=== PATIENT | male | born 1940 | race Caucasian/White ===

== ENCOUNTER 2023-10-05 11:41 | Outpatient (CLI) | payer MEDICARE, OTHER ==
[2023-10-05 13:06] LABS: APPEARANCE,URINE CLEAR (CLEAR); BILIRUBIN,URINE NEGATIVE (NEGATIVE); BLOOD, URINE NEGATIVE Ery/uL (NEGATIVE); COLOR,URINE YELLOW (YELLOW); KETONES,URINE NEGATIVE (NEGATIVE); LEUKOCYTE ESTERASE ,URINE NEGATIVE (NEGATIVE); NITRITE, URINE NEGATIVE (NEGATIVE); PROTEIN,URINE NEGATIVE (NEGATIVE); UGLUCOSE NEGATIVE (NEGATIVE); UROBILINOGEN,URINE 0.2 EU/dL (0.2)
[2023-10-05 13:14] LABS: INR 1.07 (0.91-1.10); PARTIAL THROMBOPLASTIN TIME 27.9 SEC (24.3-34.3); PROTHROMBIN TIME 11.3 SECS (9.2-11.1)
[2023-10-05 13:16] LABS: BASOPHILS # (AUTO) 0.1 K/uL (0.0-0.2); EOSINOPHILS # (AUTO) 0.1 K/uL (0.0-0.7); HEMATOCRIT 45 % (39-51); HEMOGLOBIN 14.8 g/dL (13.5-17.5); LYMPHOCYTES # (AUTO) 1.4 K/uL (0.8-4.8); LYMPHOCYTES % (AUTO) 21.1 % (20.0-44.0); MEAN CORPUSCULAR HEMOGLOBIN 29 PG (26.0-33.0); MEAN CORPUSCULAR HGB CONC 33 g/dl (31.0-36.0); MEAN CORPUSCULAR VOLUME 88 fL (80-96); MONOCYTES # (AUTO) 0.5 K/uL (0.1-1.30); NEUTROPHILS # (AUTO) 4.5 K/uL (1.8-8.9); NEUTROPHILS % (AUTO) 68.9 % (43.0-81.0); PLATELET COUNT (AUTO) 271 K/uL (150-450); RED CELL DISTRIBUTION WIDTH 14.9 % (11.5-15.0); WHITE BLOOD COUNT (AUTO) 6.5 K/uL (4.3-11.0)
[2023-10-05 13:30] LABS: CALCIUM, SERUM 9.3 mg/dL (8.5-10.1); CARBON DIOXIDE 28 mmol/L (21-32); CHLORIDE 104 mmol/L (98-107); CREATININE 1.6 mg/dL (0.6-1.3); GLUCOSE 99 mg/dL (74-106); POTASSIUM 4.2 mmol/L (3.5-5.1); SODIUM SERUM 140 mmol/L (136-145); UREA NITROGEN, BLOOD 21 mg/dL (7-18)
== END 2023-10-05 23:59 | disposition home or self-care (01) ==
LOC: RAD 11:41
PROVIDERS: ATTEND Internal Medicine Pulmonary Disease
DX: Z01.818 Encounter for other preprocedural examination (principal); R94.31 Abnormal electrocardiogram [ECG] [EKG]; I25.2 Old myocardial infarction
CPT/HCPCS: 36415; 71045-TC; 80048-TC; 85025-TC; 85730-TC

== ENCOUNTER 2024-02-16 13:49 | Inpatient (IN) | payer MEDICARE, OTHER ==
[~2024-02-16] VITALS: Ht 167.6 cm; Wt 85.7 kg
[2024-02-16] MEDS: IV D5/0.45 NACL 1,000 ML IV PRN (18:23)
[2024-02-16] MEDS ORDERED: ONDANSETRON HCL/PF 4 MG/2 ML VIAL IVP PRN (18:30)
[2024-02-16] MEDS ORDERED: Z GUARD REMEDY 4 OZ OINT TP PRN (18:30)
[2024-02-16] MEDS ORDERED: ACETAMINOPHEN 325 MG TABLET PO PRN (18:30)
[2024-02-16] MEDS: LEVOFLOXACIN 500 MG /D5W 100ML 500 MG in PREMIX 1 EA IV SCH (18:37)
[2024-02-16] MEDS: METRONIDAZOLE 500MG/ NS 100ML 500 MG in PREMIX 1 EA IV SCH (18:38)
[2024-02-16 20:00] VITALS: BP_SYST 134; BP_SYST 135; BP_DIAS 74; TEMP 97.7; TEMP 97.9; O2SAT 94; O2SAT 95
[2024-02-17] VITALS: BP 120/68; TEMP 97.5; O2SAT 94
[2024-02-17 04:00] VITALS: BP 127/70; TEMP 97.5; O2SAT 95
[2024-02-17 07:39] LABS: BASOPHILS % (AUTO) 0.3 % (0.0-2.0); EOSINOPHILS # (AUTO) 0.1 K/uL (0.0-0.7); EOSINOPHILS % (AUTO) 1.2 % (0.0-6.0); HEMATOCRIT 37 % (39-51); HEMOGLOBIN 12.2 g/dL (13.5-17.5); LYMPHOCYTES # (AUTO) 1.6 K/uL (0.8-4.8); LYMPHOCYTES % (AUTO) 14.4 % (20.0-44.0); MEAN CORPUSCULAR HEMOGLOBIN 29 PG (26.0-33.0); MEAN CORPUSCULAR HGB CONC 33 g/dl (31.0-36.0); MEAN CORPUSCULAR VOLUME 88 fL (80-96); MONOCYTES # (AUTO) 1.1 K/uL (0.1-1.30); NEUTROPHILS # (AUTO) 8.4 K/uL (1.8-8.9); NEUTROPHILS % (AUTO) 74.1 % (43.0-81.0); PLATELET COUNT (AUTO) 277 K/uL (150-450); RED BLOOD CELL COUNT(AUTO) 4.14 MIL/uL (4.5-6.0); RED CELL DISTRIBUTION WIDTH 14.9 % (11.5-15.0); WHITE BLOOD COUNT (AUTO) 11.3 K/uL (4.3-11.0)
[2024-02-17 08:00] VITALS: BP 125/71; TEMP 99; O2SAT 93
[2024-02-17 08:44] LABS: ALANINE AMINOTRANSFERASE 11 U/L (12-78); ALBUMIN 2.5 g/dL (3.4-5.0); ALKALINE PHOSPHATASE 42 U/L (46-116); ASPARTATE AMINOTRANSFERASE 13 U/L (15-37); BILIRUBIN,TOTAL 0.6 mg/dL (0.2-1.0); CALCIUM, SERUM 7.4 mg/dL (8.5-10.1); CARBON DIOXIDE 26 mmol/L (21-32); CHLORIDE 101 mmol/L (98-107); CREATININE 1.9 mg/dL (0.6-1.3); GLUCOSE 95 mg/dL (74-106); MAGNESIUM 2.1 mg/dL (1.8-2.4); POTASSIUM 3.8 mmol/L (3.5-5.1); SODIUM SERUM 134 mmol/L (136-145); TOTAL PROTEIN, SERUM 5.7 g/dL (6.4-8.2); UREA NITROGEN, BLOOD 35 mg/dL (7-18)
[2024-02-17] MEDS: Sodium Phosphate 15 MMOL in IV NS 0.9% 245 ML IV SCH (10:46)
[2024-02-17] MEDS ORDERED: DIATR MEGLU/DIATRIZOATE SODIUM 120 ML BOTTLE (GASTROGRAPHIN) ONE (11:53)
[2024-02-17 12:00] VITALS: BP 142/70; TEMP 97.9; O2SAT 93
[2024-02-17 16:00] VITALS: BP 140/95; TEMP 97.7; O2SAT 94
[2024-02-17 21:52] VITALS: BP 149/77; TEMP 97.7; O2SAT 96
[2024-02-18 03:54] VITALS: BP 142/71; TEMP 97.9; O2SAT 92
[2024-02-18 07:00] VITALS: BP 147/80; TEMP 98.1; O2SAT 92
[2024-02-18 09:49] LABS: BASOPHILS # (AUTO) 0.1 K/uL (0.0-0.2); BASOPHILS % (AUTO) 0.5 % (0.0-2.0); EOSINOPHILS # (AUTO) 0.1 K/uL (0.0-0.7); EOSINOPHILS % (AUTO) 1.2 % (0.0-6.0); HEMATOCRIT 37 % (39-51); HEMOGLOBIN 12.7 g/dL (13.5-17.5); LYMPHOCYTES # (AUTO) 1.6 K/uL (0.8-4.8); LYMPHOCYTES % (AUTO) 16.4 % (20.0-44.0); MEAN CORPUSCULAR HEMOGLOBIN 30 PG (26.0-33.0); MEAN CORPUSCULAR HGB CONC 34 g/dl (31.0-36.0); MEAN CORPUSCULAR VOLUME 88 fL (80-96); MONOCYTES # (AUTO) 0.9 K/uL (0.1-1.30); MONOCYTES % (AUTO) 8.9 % (2.0-12.0); NEUTROPHILS # (AUTO) 7.1 K/uL (1.8-8.9); PLATELET COUNT (AUTO) 279 K/uL (150-450); RED BLOOD CELL COUNT(AUTO) 4.26 MIL/uL (4.5-6.0); RED CELL DISTRIBUTION WIDTH 14.7 % (11.5-15.0); WHITE BLOOD COUNT (AUTO) 9.8 K/uL (4.3-11.0)
[2024-02-18 09:57] LABS: CALCIUM, SERUM 8.2 mg/dL (8.5-10.1); CARBON DIOXIDE 27 mmol/L (21-32); CHLORIDE 105 mmol/L (98-107); CREATININE 1.9 mg/dL (0.6-1.3); GLUCOSE 97 mg/dL (74-106); POTASSIUM 3.4 mmol/L (3.5-5.1); SODIUM SERUM 141 mmol/L (136-145); UREA NITROGEN, BLOOD 34 mg/dL (7-18)
[2024-02-18 11:30] VITALS: BP 144/73; TEMP 98.6; O2SAT 96
[2024-02-18 16:00] VITALS: BP 154/87; TEMP 97.9; O2SAT 96
[2024-02-18] MEDS: LEVOFLOXACIN 250 MG /D5W 50 ML 250 MG in PREMIX 1 EA IV SCH (18:02)
[2024-02-18 22:07] VITALS: BP 132/77; TEMP 97.8; O2SAT 100
[2024-02-19] VITALS (7 sets, daily range): BP systolic 135–164; BP diastolic 65–89; TEMP 98–99.1; O2SAT 94–96
[2024-02-19 07:43] LABS: BASOPHILS # (AUTO) 0.1 K/uL (0.0-0.2); BASOPHILS % (AUTO) 0.6 % (0.0-2.0); EOSINOPHILS # (AUTO) 0.2 K/uL (0.0-0.7); EOSINOPHILS % (AUTO) 2.3 % (0.0-6.0); HEMATOCRIT 36 % (39-51); LYMPHOCYTES # (AUTO) 1.8 K/uL (0.8-4.8); LYMPHOCYTES % (AUTO) 20.7 % (20.0-44.0); MEAN CORPUSCULAR HEMOGLOBIN 30 PG (26.0-33.0); MEAN CORPUSCULAR HGB CONC 34 g/dl (31.0-36.0); MEAN CORPUSCULAR VOLUME 87 fL (80-96); MONOCYTES # (AUTO) 0.8 K/uL (0.1-1.30); MONOCYTES % (AUTO) 9.4 % (2.0-12.0); PLATELET COUNT (AUTO) 288 K/uL (150-450); RED BLOOD CELL COUNT(AUTO) 4.08 MIL/uL (4.5-6.0); RED CELL DISTRIBUTION WIDTH 14.3 % (11.5-15.0); WHITE BLOOD COUNT (AUTO) 8.9 K/uL (4.3-11.0)
[2024-02-19 08:05] LABS: CREATINE KINASE, TOTAL 33 U/L (39-308)
[2024-02-19 08:07] LABS: ALANINE AMINOTRANSFERASE 12 U/L (12-78); ALBUMIN 2.5 g/dL (3.4-5.0); ALKALINE PHOSPHATASE 44 U/L (46-116); ASPARTATE AMINOTRANSFERASE 12 U/L (15-37); BILIRUBIN,TOTAL 0.5 mg/dL (0.2-1.0); CARBON DIOXIDE 26 mmol/L (21-32); CHLORIDE 103 mmol/L (98-107); CREATININE 1.6 mg/dL (0.6-1.3); GLUCOSE 115 mg/dL (74-106); MAGNESIUM 1.9 mg/dL (1.8-2.4); POTASSIUM 3.1 mmol/L (3.5-5.1); SODIUM SERUM 136 mmol/L (136-145); TOTAL PROTEIN, SERUM 5.7 g/dL (6.4-8.2); UREA NITROGEN, BLOOD 26 mg/dL (7-18)
[2024-02-19 08:48] LABS: PHOSPHORUS 1.9 mg/dL (2.5-4.9)
[2024-02-19] MEDS ORDERED: POTASSIUM CHLORIDE 10 MEQ TABLET.SA PO ONE (10:00)
[2024-02-19] MEDS: POTASSIUM CL. PREMIX PERIPHER. 50 ML IV SCH (11:26)
[2024-02-19] MEDS: PANTOPRAZOLE 40 MG VIAL IV SCH (11:30)
[2024-02-19] MEDS: METRONIDAZOLE 500 MG TABLET PO SCH (13:18)
[2024-02-19] MEDS: NEUTRA PHOS 1 POWD.PACKET PO ONE (18:17)
[2024-02-19] MEDS: LEVOFLOXACIN (250MG) 250 MG TABLET PO SCH (18:17)
[2024-02-20] MEDS ORDERED: ANESTHESIA TRAY IN PYXIS 1 EA TRAY MC ONE (07:00)
[2024-02-20 08:00] VITALS: BP 133/68; TEMP 98.8; O2SAT 94
[2024-02-20 08:10] LABS: PTH, INTACT 77 pg/mL (15-65)
[2024-02-20] MEDS ORDERED: GLUCAGON,HUMAN RECOMBINANT 1 MG/VIAL VIAL ONE (08:15)
[2024-02-20 13:09] LABS: *SPE A/G RATIO 1.1 (0.7-1.7); *SPE ALBUMIN 2.8 g/dL (2.9-4.4); *SPE ALPHA-1-GLOBULIN 0.3 g/dL (0.0-0.4); *SPE ALPHA-2-GLOBULIN 0.8 g/dL (0.4-1.0); *SPE BETA GLOBULIN 0.7 g/dL (0.7-1.3); *SPE GLOBULIN, TOTAL 2.5 g/dL (2.2-3.9); *SPE M-SPIKE Not Observed g/dL (Not Observed); *SPE PROTEIN TOTAL 5.3 g/dL (6.0-8.5); *SPEGAMMA GLOBULIN 0.8 g/dL (0.4-1.8)
[2024-02-20 16:00] VITALS: BP 150/82; TEMP 98.1; O2SAT 97
[2024-02-20] MEDS ORDERED: FLUC200T PO (18:16)
[2024-02-20] MEDS ORDERED: PANT40TA2 PO (18:16)
[2024-02-20 20:00] VITALS: BP 148/79; TEMP 97.9; O2SAT 96
[2024-02-20] MEDS: TEMAZEPAM 7.5 MG CAPSULE PO ONE (21:56)
[2024-02-21 07:09] LABS: BASOPHILS # (AUTO) 0.1 K/uL (0.0-0.2); BASOPHILS % (AUTO) 0.8 % (0.0-2.0); EOSINOPHILS # (AUTO) 0.2 K/uL (0.0-0.7); EOSINOPHILS % (AUTO) 2.2 % (0.0-6.0); HEMATOCRIT 36 % (39-51); HEMOGLOBIN 12.1 g/dL (13.5-17.5); LYMPHOCYTES # (AUTO) 2.1 K/uL (0.8-4.8); LYMPHOCYTES % (AUTO) 23.4 % (20.0-44.0); MEAN CORPUSCULAR HEMOGLOBIN 30 PG (26.0-33.0); MEAN CORPUSCULAR HGB CONC 34 g/dl (31.0-36.0); MEAN CORPUSCULAR VOLUME 87 fL (80-96); MONOCYTES # (AUTO) 0.9 K/uL (0.1-1.30); MONOCYTES % (AUTO) 9.5 % (2.0-12.0); NEUTROPHILS # (AUTO) 5.8 K/uL (1.8-8.9); NEUTROPHILS % (AUTO) 64.1 % (43.0-81.0); PLATELET COUNT (AUTO) 303 K/uL (150-450); WHITE BLOOD COUNT (AUTO) 9.1 K/uL (4.3-11.0)
[2024-02-21 07:23] LABS: CALCIUM, SERUM 8.5 mg/dL (8.5-10.1); CARBON DIOXIDE 25 mmol/L (21-32); CHLORIDE 104 mmol/L (98-107); CREATININE 1.6 mg/dL (0.6-1.3); GLUCOSE 110 mg/dL (74-106); POTASSIUM 3.1 mmol/L (3.5-5.1); SODIUM SERUM 136 mmol/L (136-145); UREA NITROGEN, BLOOD 13 mg/dL (7-18)
[2024-02-21 08:00] VITALS: BP 131/59; TEMP 98.8; O2SAT 93
[2024-02-21] MEDS: PANTOPRAZOLE 40 MG/PACK PACK PO SCH (09:15)
[2024-02-21] MEDS: POTASSIUM CHLORIDE 20 MEQ POWDER PACKET NG SCH (10:14)
[2024-02-21] MEDS ORDERED: POTASSIUM CL. PREMIX PERIPHER. 50 ML IV SCH (10:30)
[2024-02-21] MEDS: POTASSIUM CHLORIDE 20 MEQ TAB.PRT.SR PO SCH (11:43)
[2024-02-21 12:00] VITALS: BP 90/68; TEMP 97.5; O2SAT 95
== END 2024-02-21 15:00 | disposition home or self-care (01) | DRG 388 ==
LOC: TELE 15:35 → MED 02-19 17:02
PROVIDERS: ADMIT Internal Medicine; ATTEND Internal Medicine
PROC: 0DB38ZX Excision of Lower Esophagus, Via Natural or Artificial Opening Endoscopic, Diagnostic (ICD-10-PCS; principal; 2024-02-21)
PROC: 0DB78ZX Excision of Stomach, Pylorus, Via Natural or Artificial Opening Endoscopic, Diagnostic (ICD-10-PCS; 2024-02-21)
DX: K56.600 Partial intestinal obstruction, unspecified as to cause (principal); N17.0 Acute kidney failure with tubular necrosis; E87.1 Hypo-osmolality and hyponatremia; B37.81 Candidal esophagitis; K25.3 Acute gastric ulcer without hemorrhage or perforation; K57.90 Diverticulosis of intestine, part unspecified, without perforation or abscess without bleeding; N40.0 Benign prostatic hyperplasia without lower urinary tract symptoms; N28.1 Cyst of kidney, acquired; N18.9 Chronic kidney disease, unspecified; N13.9 Obstructive and reflux uropathy, unspecified
CPT/HCPCS: 36415; 71045-TC; 74018; 74250-TC; 76770-TC; 80048-TC; 80053-TC; 82550-TC; 83735-TC; 83970; 84100-TC; 84155; 84165; 85025-TC; 97112-TC; 97116-TC; 97530-TC; A4216; A4223; A9563; C9113; G0378; J1610; J1956; J2704; J3480; J3490; J7030; J7040; J7050; Q9963